=== PATIENT | female | born 1940 | race Caucasian/White ===

== ENCOUNTER 2023-10-26 20:26 | Inpatient (IN) | payer OTHER, SELFPAY ==
[2023-10-26 18:03] VITALS: BP 135/79
--- NOTE | 2023-10-26 19:12 | ED.GENMED ---
History of Present Illness
General
Chief Complaint: Rectal Bleeding
Source: patient and family
Exam Limitations: none
Time Seen by Provider: 10/26/23 18:41
Nursing documentation reviewed up to this point in time: agreed with
History of Present Illness
History of Present Illness:
Patient to ED with complaint of black stools. States she had 3 episodes last PM and then 1 again this afternoon. Had a similar event in 2018 due to use of naproxen. SHe denies current NSAId use. Denies fever/chills, n/v. Denies abdominal
pain/cramping. Eating and drinking normally. Brought to ED by daughter for eval.
Past History
Past History
ED Past Medical History: Other (Arthritis, Cellulitis)
ED Past Surgical History: Orthopedic (Left hip replacement)
Social History
Tobacco: Non-smoker
Alcohol: None
Personal:
Living: with family
Review of Systems
Review of Systems
Allergies reviewed?: Yes
All Other Systems: ROS reviewed and negative except as documented in HPI and ROS
Constitutional: Reports no symptoms
EENT: Reports no symptoms
Respiratory: Reports no symptoms
Cardiac: Reports no symptoms
ABD/GI: Reports black stools
: Reports no symptoms
Musculoskeletal: Reports no symptoms
Skin: Reports no symptoms
Neurological: Reports no symptoms
Psychiatric: Reports no symptoms
Phy Exam
General Physical Exam
General Presentation: well appearing and no apparent distress
General age: appears stated age
General Skin: warm and dry
General Habitus: normal
General Mental: alert
Cardiovascular Exam
Cardiovascular Exam: regular rate/rhythm and no edema
Pulmonary Exam
Pulmonary Exam: no respiratory distress and chest non tender
Gastrointestinal Exam
Gastrointestinal Exam: normal bowel sounds, non tender, soft, no organomegaly, no pulsatile mass, non distended and no cva tenderness
Rectal Exam: normal external exam, normal sphincter tone and soft stool
Stool: maroon
Guaiac Status: grossly bloody - positive
Musculoskeletal Exam
Musculoskeletal Exam: full ROM and neuro vasc intact
Skin Exam
Skin Exam: normal color, warm/dry and no rash
Psychiatric Exam
Psychiatric Exam: normal mood/affect
Course
Orders/Labs/Results
Orders:
Orders
10/26/23 19:10
0.9% Sodium Chloride 1000 ml [Nss] 1,000 ml IV BOLUS
10/26/23 19:11
Pantoprazole [Protonix IV] 80 mg IV NOW STA
10/26/23 19:16
Type+Screen Urgent
Complete Blood Count/With Diff Urgent
Comprehensive Metabolic Panel Urgent
Lipase Urgent
10/26/23 20:15
Admit/Transfer Patient As Directed
Co-Sign Provider:
Level of Care: Inpatient admission
Assign to:: Telemetry
Physician / Group: [email or web address]
Diagnosis: Acute bloody maroon colored blood painless GIB suspect LGI origin
Reason for Telemetry: Other
Other Reason for Telemetry: acute GIB
Date to Stop Telemetry: 10/28/23
Time to Stop Telemetry: 11:00
Reason for Hospitalization: Acute bloody maroon colored blood painless GIB suspect LGI origin
Associated with ACBLA anemia
Expected length of stay greater than two midnights?: Yes
ELOS- Estimated Length of Stay in days: 2
I certify the patient meets the requirements for IP care: Yes
10/26/23 20:16
Code Status As Directed
Resuscitation Status: Full Code
10/26/23 21:16
0.9% Sodium Chloride 1000 ml [Nss] 1,000 ml IV 60 mls/hr
10/26/23 21:16
Activity As Directed
Activity Level: With Assistance
INT (Intravenous Needle Therapy) As Directed
Comment: Place 2 IV catheters of the largest bore possible until stable
Intake/ Output As Directed
Frequency: Per unit guidelines
Orthostatic Vital Signs As Directed
Orthostatic VS Frequency: Now
Comment: then every four hours for twenty-four hours
Pneumatic Compression Sleeves As Directed
Type: Knee high
Vital Signs As Directed
Frequency: Per unit guidelines
DX Deep Vein Thrombosis Video Routine
10/27/23 06:00
Basic Metabolic Panel IN AM
10/27/23 08:00
Pantoprazole [Protonix IV] 40 mg IV BID
10/28/23 11:00
DC Protocol for Telemetry ONCE
Abnormal Lab Results
10/26/23
19:16
RBC 2.64 L 10^6/uL
(4.20-5.40)
Hgb 9.3 L g/dL
(12.0-16.0)
Hct 27.2 L %
(37.0-47.0)
MCV 103.0 H fL
(81.0-99.0)
MCH 35.2 H pg
(27.0-31.0)
MPV 12.8 H fL
(7.4-10.4)
BUN 24 H mg/dl
(7-17)
Creatinine 0.5 L mg/dL
(0.6-1.0)
Total Protein 5.8 L g/dl
(6.3-8.2)
10/26/23 19:16
10/26/23 19:16
Vital Signs
Initial and Last Documented VS:
Initial Vital Signs
Temp Pulse Resp BP Pulse Ox
98.1 F 71 18 135/79 100
10/26/23 18:03 10/26/23 18:03 10/26/23 18:03 10/26/23 18:03 10/26/23 18:03
Last Documented Vital Signs
Temp Pulse Resp BP Pulse Ox
97.9 F 74 16 184/84 100
10/26/23 21:35 10/26/23 21:35 10/26/23 21:35 10/26/23 21:35 10/26/23 21:35
*Critical Care Note
Total Time (30-74mins, 75-104mins- exclusive of procedures): Not Applicable
Update Note
Update Note:
Patient to ED wtih complaint of black stools since last PM. SImilar event in 2018 related to NSAID use. Denies any NSAId use now. Rectal exam in ED reveals maroon soft stool, heme pos. No abdominal pain, n/v. No weakness. Will admitted to
hospitalist service.
ED Attending Note
-
Portions of this chart may have been created with voice recognition software.� Occasional wrong word or��sound alike� substitutions may have occurred due to the inherent limitations of voice recognition software.
Discharge Plan
Departure
Patient Disposition: Admit
Date of Disposition: 10/26/23
Time of Disposition: 19:53
Presentation/result/management discussed w/ accepting MD/DO: Hospitalist
Patient with high blood pressure during this ER visit?: No
Condition: Good
Covid-19: Not Applicable
Discharge Problem:
GI bleeding
Interventions
Interventions:
*Risk Screen - Suicide Last Done: 10/26/23 18:03
*General Assessment Last Done: 10/26/23 18:03
*Neglect/Abuse Screening Last Done: 10/26/23 18:03
ED- Fall Risk Assessment Last Done: 10/26/23 19:18
*ED COVID-19 Vaccine History Last Done: 10/26/23 21:44
*Nursing Disposition Last Done: 10/26/23 21:30
FF-Faanxc-Lrpmfxbbwn Assessment Last Done: 10/26/23 19:19
ED- Cardiac Assessment Last Done: 10/26/23 19:19
ED- Pulmonary Assessment Last Done: 10/26/23 19:19
Discharge Date and Time
Discharge Date/Time: 10/26/23 21:31
[2023-10-26 19:15] VITALS: BP 159/72
[2023-10-26 19:18] VITALS: BMI 20.1
[2023-10-26] MEDS: PROTONIX IV 80 MG IV (19:27)
[2023-10-26] MEDS: NSS 1000 IV ×2 (19:27→22:17)
[2023-10-26 19:41] LABS: % Basophils 0.3 % (0-2); % Eosinophils 0.5 % (0-6); % Immature Granulocytes 0.3 % (0-0.5); % Lymphocytes 32.4 % (20.5-51.1); % Monocytes 7.8 % (1.7-9.3); % Neutrophils 58.7 % (42.2-75.2); Absolute Lymphocytes 1.9 10^3/uL (1.2-3.4); Absolute Monocytes 0.5 10^3/uL (0.1-0.6); Absolute Neutrophils 3.5 10^3/uL (1.4-6.5); Hematocrit 27.2 % (37.0-47.0); Hemoglobin 9.3 g/dL (12.0-16.0); Mean Corp Hgb Conc. 34.2 g/dL (33.0-37.0); Mean Corpuscular Hgb 35.2 pg (27.0-31.0); Mean Platelet Volume 12.8 fL (7.4-10.4); Nucleated Red Blood Cells % 0 %; Platelet Count 148 10^3/uL (130-400); Red Blood Cell Count 2.64 10^6/uL (4.20-5.40); Red Cell Dist. Width 13.9 % (11.5-14.5)
[2023-10-26 19:45] LABS: ALT (SGPT) 14 U/L (0-35); AST (SGOT) 21 U/L (14-36); Albumin 3.7 g/dl (3.5-5.0); Alkaline Phosphatase 72 U/L (38-126); Blood Urea Nitrogen 24 mg/dl (7-17); Calcium 9.2 mg/dl (8.4-10.2); Carbon Dioxide 24 mmol/L (22-30); Chloride 102 mmol/L (98-107); Estimated Creatinine Clearance 51 ml/min; Glucose 93 mg/dl (70-99); Lipase 142 U/L (23-300); Potassium 3.8 mmol/L (3.5-5.1); Sodium 135 mmol/L (135-145); Total Bilirubin 0.5 mg/dl (0.2-1.3); Total Protein 5.8 g/dl (6.3-8.2); eGFR > 60.00
[2023-10-26 20:00] VITALS: BP 167/73
--- NOTE | 2023-10-26 20:06 | HPS.HSE ---
Family Physician
-
Family Physician: Kaitlin Mike MD
Chief Complaint
-
3 episodes of maroon colored BM l
History of Present Illness
83F BiB daughter HX GIB, Cecal ectasia seen at ER for evaluation of black stool.
- daughter noted dark colored loose stool
- 3 episodes of dark colored puddle of loose BM last evening
- This afternoon afternoon maroon colored very loose stool , when flushed water turned red
- denied abdominal pain, N/V
- HX GIB with use of NSAIDs in 2018
- Eating and drinking normally
- Not on blood thinner
Medical History
Past Medical History
Past Medical History: Reports Other (GIB, cecal ectasia)
Past Surgical History: Reports None
Social History
Tobacco: Former Smoker
Alcohol: None
Drug: None
Living: With Family
Family History
Family History: Not pertinent
Allergies / Home Medications
Allergies reflects when Allergies were last updated in [facility].
Home Medications with original date entered in [facility]
Allergy/Medication List:
Allergies
Allergy/AdvReac Type Severity Reaction Status Date / Time
naproxen [From Naprosyn] Allergy Severe rectal Verified 10/26/23 18:05
bleeding
Milk Containing Products Allergy DAIRY-GAS Verified 10/26/23 18:05
(Dairy)
[Milk Containing Products]
Home Medications
glucosam 750 mg-chondroi 100 mg-hyalur 1.65 mg-CF borate 108 mg tablet ([employer]) 1 ea PO DAILY 10/29/17
cyanocobalamin (vitamin B-12) 1,000 mcg tablet 1,000 mcg PO DAILY ##30 11/01/17
Boswellia hugo extract-turmeric root extract 500 mg capsule 1 cap PO DAILY 10/26/23
Frankincense Oil 1 applic topical DAILY right cadence 10/26/23
acetaminophen 500 mg tablet (Tylenol Extra Strength) 1,000 mg PO DAILY@0 10/26/23
acetaminophen 500 mg tablet (Tylenol Extra Strength) 1,000 mg PO Q4H 10/26/23
cholecalciferol (vitamin D3) 25 mcg (1,000 unit) tablet (Vitamin D3) 25 mcg PO DAILY 10/26/23
diphenhydramine 25 mg-acetaminophen 500 mg tablet (Tylenol PM Extra Strength) 1 tab PO DAILY@19910/26/23
diphenhydramine 25 mg-acetaminophen 500 mg tablet (Tylenol PM Extra Strength) 2 tab PO HS 10/26/23
Review of Systems
-
Constitutional: Reports No Symptoms
EENT: Reports No Symptoms
Respiratory: Reports No Symptoms
Cardiac: Reports No Symptoms
Abdomen/GI: Reports See HPI
: Reports No Symptoms
Musculoskeletal: Reports No Symptoms
Skin: Reports No Symptoms
Neurological: Reports No Symptoms
Endocrine: Reports No Symptoms
Hematologic/Lymphatic: Reports No Symptoms
Psych: Reports No Symptoms
Physical Exam
Vital Signs
Vital Signs
Temp Pulse Resp BP Pulse Ox
98.1 F 64 13 159/72 99
10/26/23 18:03 10/26/23 19:15 10/26/23 19:12 10/26/23 19:15 10/26/23 19:19
Physical Exam
General: Well Developed, Well Nourished and No Apparent Distress
HEENT: NormoCephalic, Moist mucous membranes and Atraumatic
Respiratory: Clear
Cardiac: S1/S2 and Regular Rhythm; No Murmur or Rub
GI: Soft, Non Tender, Non Distended and Normal Bowel Sounds; No Organomegaly
Rectal: Maroon Stools (grossly bloody ) and Deferred by Provider
Musculoskeletal: No Clubbing, No Cyanosis and No Edema
Skin: No Rash
Neuro: Nonfocal/grossly intact
Laboratory Results
-
10/26/23 19:16
10/26/23 19:16
Laboratory Results
Total Bilirubin 0.5 mg/dl (0.2-1.3) 10/26/23 19:16
AST 21 U/L (14-36) 10/26/23 19:16
ALT 14 U/L (0-35) 10/26/23 19:16
Alkaline Phosphatase 72 U/L (38-126) 10/26/23 19:16
Lipase 142 U/L (23-300) 10/26/23 19:16
Data Reviewed
-
Lab Data: Labs Reviewed by me
Old Records: Reviewed
Impression/Plan
-
Vital Signs
Temp Pulse Resp BP Pulse Ox
98.1 F 64 13 159/72 99
10/26/23 18:03 10/26/23 19:15 10/26/23 19:12 10/26/23 19:15 10/26/23 19:19
Laboratory Tests
04/17/22 10/26/23
14:32 19:16
Hgb 11.5 L 9.3 L
MCV 103.0 H
Plt Count 148
BUN 24 H
Creatinine 0.5 L
eGFR > 60.00
05/16/22 EGD
- Normal esophagus.
- Erythematous mucosa in the antrum. Biopsied.
- 4 cm hiatal hernia.
- Normal examined duodenum. Biopsied.
Last hospitalist admission:
DATE OF ADMISSION: 10/29/2017 - DATE OF DISCHARGE: 11/01/2017
DISCHARGE DIAGNOSIS:
1. GI bleed.
2. Cecal ectasia.
3. H. Pylori positive.
ASSESSMENT & PLAN
Acute bloody maroon colored red blood painless GIB suspect LGI origin
DDX: vascular ectasia, Diverticular origin
Associated with ACBLA anemia - Hgb 9.3
Hemodynamically stable
- T & S
- Blood consented, scanned at ER
- NPO and IVF
- IV PPI BID
- GI consult
Chr condition
GERD
Heart murmur
Arthritis
Remote HX smoking
DVT Px: SCD
Code: Full
IP TLM
[2023-10-26 21:00] VITALS: BP 178/67
[2023-10-26 21:23] VITALS: BMI 20.2
[2023-10-26 21:35] VITALS: BP 184/84
[2023-10-26 23:00] VITALS: BP 188/80
[2023-10-26] MEDS: TYLENOL 1000 MG PO (23:00)
[2023-10-26] MEDS: BENADRYL 25 MG PO (23:00)
--- NOTE | 2023-10-26 23:51 | PTCARENOTE ---
Pt. arrived to 3W via stretcher and ambulated to bed with a rolling walker. Pt. was admitted and oriented to unit. Pt assessed by RN, manual blood pressure found to be 182/88. RUFUS Ahn notified, and no new orders placed at this time. Pt.
resting in bed comfortably and no further requests at this time.
[2023-10-27] VITALS (10 sets, daily range): BP systolic 132–205; BP diastolic 58–124; PULSE 75–119
[2023-10-27 01:35] LABS: Hematocrit 22.2 % (37.0-47.0); Hemoglobin 7.8 g/dL (12.0-16.0)
[2023-10-27] MEDS: APRESOLINE 5 MG IV (03:50)
[2023-10-27 05:44] LABS: Hematocrit 23.5 % (37.0-47.0); Hemoglobin 8.3 g/dL (12.0-16.0)
[2023-10-27 06:12] LABS: Blood Urea Nitrogen 17 mg/dl (7-17); Calcium 9.6 mg/dl (8.4-10.2); Carbon Dioxide 21 mmol/L (22-30); Chloride 105 mmol/L (98-107); Estimated Creatinine Clearance 51 ml/min; Glucose 99 mg/dl (70-99); Potassium 3.6 mmol/L (3.5-5.1); Sodium 135 mmol/L (135-145); eGFR > 60.00
--- NOTE | 2023-10-27 08:01 | W.PN.HOSP.TC ---
Addendum entered and electronically signed by Freddy Reyes MD 10/27/23 08:29:
Continue NPO pending GI input
Original Note:
Today's Communication/Plan
-
check Fe studies, consider Ferrlecit
Assessment / Plan
Assessment / Plan
Acute bloody maroon colored red blood painless GIB suspect LGI origin
DDX: vascular ectasia, Diverticular origin
Associated with ACBLA anemia - Hgb 9.3-->7.8-->8.3
Hemodynamically stable
- T & S
- Blood consented, scanned at ER
- NPO and IVF,
will order Fe studies
- IV PPI BID
follow Hgb, will hold on transfusion at this time
- GI consult
Chr condition
GERD
Aortic Sclerosis/MR
Arthritis
Remote HX smoking
Systolic HTN, mild
Will add low dose Norvasc
Confirmed with dgt, Nancy, pt not on PPI for ~1yr and dgt has been updated
DVT Px: SCD
Code: Full
IP TLM
Anticipated Discharge: 24 - 48 hours
Subjective/Interval History
-
Date of Service: October 27, 2023
Awake, alert, passed maroon stools earlier today
Objective Data
-
Labs:
Laboratory Results
10/26/23 10/27/23 10/27/23
21:16 01:28 05:18
Hgb Cancelled 7.8 L 8.3 L
Hct Cancelled 22.2 L 23.5 L
Sodium 135
Potassium 3.6
Chloride 105
Carbon Dioxide 21 L
BUN 17
Creatinine 0.5 L
Glucose 99
Calcium 9.6
10/27/23 10/27/23
11:00 17:00
Hgb Pending Pending
Hct Pending Pending
Sodium
Potassium
Chloride
Carbon Dioxide
BUN
Creatinine
Glucose
Calcium
Vital Signs:
Vital Signs
Temp Pulse Resp BP Pulse Ox
97.9 F 96 16 149/86 98
10/27/23 03:00 10/27/23 06:05 10/27/23 06:05 10/27/23 06:05 10/27/23 06:05
I&O
10/26/23 10/27/23 10/28/23
06:59 06:59 06:59
Intake Total 0 / 0
Balance 0 / 0
Review of Systems
-
History Source: Patient and Coordinated Provider
Constitutional: Denies Fever
EENT: Reports No Symptoms Reported
Respiratory: Reports No Symptoms; Denies Trouble Breathing
Cardiac: Reports No Symptoms; Denies Chest Pain
Abdomen/GI: Reports Black Stools (maroon stools earlier today); Denies Abdominal Pain
Musculoskeletal: Reports No Symptoms
Physical Exam
-
General: Well Developed, Well Nourished and No Apparent Distress
HEENT: Normocephalic, Atraumatic and Moist Mucous Membranes
Respiratory: Clear to Auscultation; Negative Wheezes, Rales or Rhonchi
Cardiac: Regular Rhythm, S1/S2 and Murmur (3/6 MR m, 2/6 m)
GI: Soft, Nontender and Nondistended
Musculoskeletal: No Clubbing, No Cyanosis and No Edema
Neuro: Awake, Alert and Oriented
[2023-10-27] MEDS: NSS (PRESERVATIVE FREE) 10 ML IV ×2 (08:20→19:49)
[2023-10-27] MEDS: PROTONIX IV 40 MG IV ×2 (08:21→19:49)
[2023-10-27 08:42] LABS: Iron 53 ug/dl (37-170)
[2023-10-27 08:51] LABS: Percent Saturation 20 % (20-50); Total Iron Binding Capacity 262 ug/dl (265-497)
[2023-10-27] MEDS: NORVASC 2.5 MG PO (09:38)
[2023-10-27] MEDS: TYLENOL 1000 MG PO (09:38)
[2023-10-27 10:11] LABS: Hematocrit 26.1 % (37.0-47.0); Hemoglobin 9.1 g/dL (12.0-16.0)
[2023-10-27 10:17] LABS: Folate 6.3 ng/ml (2.76-20); Vitamin B12 919 pg/ml (239-931)
--- NOTE | 2023-10-27 11:38 | CON.GI ---
Consultation
-
Date/Time Consultation Requested: 10/27/2023, 10:03 AM
Date/Time Consultation Performed: 10/27/2023, 11:40 AM
Requesting Provider: Dr. Freddy Reyes
Performing Provider: Dr. Mac Anne
Reason for Consultation: Black, maroon colored stool
Medical History
Chief Complaint / HPI
Chief Complaint: Black stools
History of Present Illness:
Ms Liu is a 83 y.o female with past medical history of prior GI bleed (felt 2/2 prior NSAIDs versus cecal AVM in 2018) who presented to the ED with melena and acute blood loss anemia with Hgb 9.3
History obtained from both daughter (Nancy) and patient at bedside. Patient reports she was in her USOH until Friday when she developed a large, black tarry bowel movement. She had multiple episodes in the afternoon where her daughter eventually
came over and noticed thick, black tarry stools. When she flushed it looked dark reddish in the toliet bowel. Had [id number] more episodes at home and subsequently came to the ED for further evaluation. Denies any abdominal pain, nausea/vomiting,
changes in bowel habits, reflux/heartburn or constipation/diarrhea. Denies any NSAIDs as she reports a prior history of GI bleeding in 2018 which was attributed to her Naproxen. Otherwise, no other NSAIDs since that time or other ASA or other
antiplatelets/anticoagulants. No significant EtOH use. She reports eating and drinking normally at home, however does also note an approximately 50 lb unintentional weight loss as well over the past 1-[address] Abd/pelvis 04/2022 was
reportedly unremarkable (ordered by her PCP).
In regards to her GI history, she underwent bi-directional endoscopy on 10/2017 where an EGD revealed a widely patent Schatzki ring, few scattered gastric erosions and gastritis (biopsies revealed H pylori organisms with moderate active gastritis),
and normal duodenum (negative for Celiac). 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 She was
advised to have a repeat colonoscopy in one year given her polyp and suboptimal bowel prep. However, never underwent a repeat colonoscopy as an outpatient. Both patient and patient's daughter deny ever being told or treated for H pylori in the past.
Additionally, underwent a repeat EGD (for BOB, heartburn and weight loss) 05/2022 which revealed a normal esophagus, 4 cm HH, severe erythema in the gastric antrum (negative for H pylori) and normal duodenum (nml SB mucosa)
In the ED, patient was afebrile and HD-stable. Labs notable for BUN 24 and Director Title 0.5. LFTs wnl. CBC with Hgb 9.3 (prev 11.5 on 04/2022), WBC 6.0 and plts 148. She was started on IV PPI and admitted to medicine for further management.
Past Medical History
Past Medical History: Other (Arthritis, hx of GIB (NSAIDs versus cecal AVM))
Past Surgical History: None
Social History
Tobacco: Former Smoker
Alcohol: None
Drug: None
Family History
Family History: Reviewed & Not Pertinent
Allergies / Home Medications
Allergy/AdvReac Type Severity Reaction Status Date / Time
naproxen [From Naprosyn] Allergy Severe rectal Verified 10/26/23 18:05
bleeding
Milk Containing Products Allergy DAIRY-GAS Verified 10/26/23 18:05
(Dairy)
[Milk Containing Products]
�Medication �Instructions �Recorded
glucosam 750 mg-chondroi 100 1 ea PO DAILY osteoarthritis 10/29/17
mg-hyalur 1.65 mg-CF borate 108 mg
tablet ([employer])
cyanocobalamin (vitamin B-12) 1,000 mcg PO DAILY ##30 11/01/17
1,000 mcg tablet
Boswellia hugo extract-turmeric 1 cap PO DAILY Supplement 10/26/23
root extract 500 mg capsule
Frankincense Oil 1 applic topical DAILY right cadence 10/26/23
acetaminophen 500 mg tablet 1,000 mg PO Q4H osteoarthritis 10/26/23
(Tylenol Extra Strength)
acetaminophen 500 mg tablet 500 mg PO DAILY@0200 osteoarthritis 10/26/23
(Tylenol Extra Strength)
cholecalciferol (vitamin D3) 25 25 mcg PO DAILY Supplement 10/26/23
mcg (1,000 unit) tablet (Vitamin
D3)
diphenhydramine 25 1 tab PO DAILY@0200 sleep/pain 10/26/23
mg-acetaminophen 500 mg tablet
(Tylenol PM Extra Strength)
diphenhydramine 25 2 tab PO HS sleep/pain 10/26/23
mg-acetaminophen 500 mg tablet
(Tylenol PM Extra Strength)
Review of Systems
-
All other systems: A 12 pt ROS was Negative except as stated above in HPI
Vital Signs
Temp Pulse Resp BP Pulse Ox
98.0 F 92 18 181/86 99
10/27/23 11:35 10/27/23 11:35 10/27/23 11:35 10/27/23 09:38 10/27/23 11:35
Physical Exam
Exam
General: Well Developed, Well Nourished, No Apparent Distress and Comfortable
HEENT: Anicteric and Moist Mucous Membranes
Respiratory: Clear and Non Labored Respirations
Cardiac: S1/S2 and Regular Rhythm
GI: Soft, Non Tender and Non Distended
Skin: Warm
Neuro: AO x 3 and Nonfocal/Grossly Intact
Psych: Calm
Results
WBC 6.0 10^3/uL (4.8-10.8) 10/26/23 19:16
Hgb 9.1 g/dL (12.0-16.0) L 10/27/23 09:48
Hct 26.1 % (37.0-47.0) L 10/27/23 09:48
MCV 103.0 fL (81.0-99.0) H 10/26/23 19:16
Plt Count 148 10^3/uL (130-400) 10/26/23 19:16
Absolute Neuts (auto) 3.5 10^3/uL (1.4-6.5) 10/26/23 19:16
Sodium 135 mmol/L (135-145) 10/27/23 05:18
Potassium 3.6 mmol/L (3.5-5.1) 10/27/23 05:18
Chloride 105 mmol/L (98-107) 10/27/23 05:18
Carbon Dioxide 21 mmol/L (22-30) L 10/27/23 05:18
BUN 17 mg/dl (7-17) 10/27/23 05:18
Creatinine 0.5 mg/dL (0.6-1.0) L 10/27/23 05:18
Calcium 9.6 mg/dl (8.4-10.2) 10/27/23 05:18
Total Bilirubin 0.5 mg/dl (0.2-1.3) 10/26/23 19:16
AST 21 U/L (14-36) 10/26/23 19:16
ALT 14 U/L (0-35) 10/26/23 19:16
Alkaline Phosphatase 72 U/L (38-126) 10/26/23 19:16
Lipase 142 U/L (23-300) 10/26/23 19:16
Diagnostic Image Results:
Prior CT Abd/pelvis 04/19/2022- Impression:
1. No acute findings within the chest, abdomen, or pelvis. No CT findings to explain patient's weight loss.
2. Cholelithiasis.
3. Sigmoid diverticulosis.
4. Limited evaluation of the pelvic viscera secondary to beam hardening artifact. No gross abnormality is appreciated.
5. Severe degenerative disc disease at L5-S1. Significant thoracic kyphosis. Severe degenerative osteoarthritis involving the right hip.
6. Additional findings above.
Prior GI Procedures:
EGD 10/30/2017- Impression:
- Normal duodenal bulb and second portion of the duodenum. Biopsied.
- Gastric erosions without bleeding.
- Erythematous mucosa in the antrum. Biopsied.
- Normal cardia, gastric fundus and gastric body.
- Small hiatal hernia.
- Z-line regular, 35 cm from the incisors.
- Widely patent Schatzki ring.
Colonoscopy 10/31/2017- Impression:
- Preparation of the colon was fair.
- A single bleeding colonic angioectasia. Treated with bipolar cautery. Clip (MR conditional) was placed.
- One 10 mm polyp at 40 cm proximal to the anus, removed with a hot snare. Resected and retrieved. Clip (MR conditional) was placed.
- Moderate diverticulosis in the sigmoid colon. There was evidence of diverticular spasm.
- Tortuous colon.
- Redundant colon.
- Stool in the sigmoid colon, in the descending colon and in the transverse colon.
- Non-bleeding external internal hemorrhoids.
Rec'd: Repeat Colonoscopy in 1 Year
EGD 05/16/2022- Impression:
- Normal esophagus.
- Erythematous mucosa in the antrum. Biopsied.
- 4 cm hiatal hernia.
- Normal examined duodenum. Biopsied.
Assessment / Plan
-
Ms Liu is a 83 y.o female with past medical history of prior GI bleed (felt 2/2 prior NSAIDs versus cecal AVM in 2018) who presented to the ED with melena and acute blood loss anemia with Hgb 9.3.
#Melena
#Acute Blood Loss Anemia
#Hx of Gastric Erosions (NSAID induced vs H pylori)
#Hx of H pylori Gastritis (never treated ??)
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
#Hx of Chronic BOB
#Unintentional Weight Loss (50 lbs)
Impression: Patient presenting with multiple episodes of melena found to have acute on chronic anemia (Hgb 9s -> 7s ; prev 11s) concerning for GI bleed. Previous history of GI bleeding in the past back on 10/2017 where it was possibly attributed to
NSAID-induced ulcers/erosions versus actively bleeding cecal AVM (s/p bipolar cautery at that time). Of note, previous biopsies also revealed H pylori organisms on path staining however both patient and her daughter deny ever being told about this
or receiving prior H pylori eradication therapy. No other NSAIDs or other blood thinners currently. Prior EGD 05/2022 grossly normal only noting gastric erythema with biopsies revealing chronic gastritis. Etiology concerning for either UGIB in
setting of PUD 2/2 H pylori versus gastroduodenal erosions (given her prior hx) versus gastroduodenal AVMs. Doubt brisk UGIB as without any further bloody stools or melena since admission. Slow LGIB also on differential particularly given her known
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 At risk for SB AVMs as well and possibly distal SB AVM. Much less likely diverticular as without hematochezia. Malignancy also on differential given her profound weight loss
and suboptimal prep at time of her last colonoscopy and should be ruled out. Thus, would benefit from bi-directional endoscopic evaluation for her melena, acute blood loss anemia and unintentional weight loss.
Recommendations:
- Okay for CLD, keep NPO at MN
- Continue empiric IV PPI 40 mg BiD
- F/u anemia w/u, if iron deficient would start IV iron
- Start Golyltely bowel prep this afternoon
- Plan for EGD and Colonoscopy tomorrow, 10/28/2023
- Will need to clarify with outpatient records if patient was ever treated for H pylori. Would defer starting eradication therapy at this time
- Strict avoidance of all NSAIDs
- If large volume hematochezia, significant drop in Hgb or HD-instability would obtain stat CTA in attempts of localization
- Rest of care per primary team
Discussed with patient's daughter, Nancy, at bedside this afternoon.
Inpatient GI team will continue to follow.
Data Reviewed
-
Radiology: Report Reviewed by me
CT Scan: Report Reviewed by me
Old Records: Requested
-
-
Thank you for consultation and allowing me to participate in the patient's care. Please call the television specialist GI physician during the after hours with any questions or concerns.
--- NOTE | 2023-10-27 12:28 | CM ---
Patient and daughter seen at bedside. Patient lives with daughter in home, master bedroom. Patient has walker at home. Patient in April. Patient daughter is arranging for home improvement contractor but arrangements are not finalized. Patient
PCP is Dr. Mike and she uses the [facility] in [place]. Patient plan is for discharge home with VN vs home with no needs. CM will continue to follow for discharge planning needs.
Plan; home with VN vs home with no needs.
[2023-10-27] MEDS: NULYTELY SOLUTION 4 LITERS PO (13:59)
[2023-10-27] MEDS: NSS 1000 IV (15:09)
[2023-10-27 16:19] LABS: Hematocrit 25.7 % (37.0-47.0); Hemoglobin 9.2 g/dL (12.0-16.0)
[2023-10-27] MEDS: ZOFRAN 4 MG IV (22:56)
[2023-10-28] VITALS (13 sets, daily range): BP systolic 16–165; BP diastolic 57–95
--- NOTE | 2023-10-28 00:10 | PTCARENOTE ---
Addendum entered by Qian Noble RN 10/28/23 01:50:
after nausea subsided, pt encouraged to drink bowel prep. Pt refused despite education. Plan of care ongoing.
Original Note:
Pt unable to tolerate bowel prep for colonoscopy, vomited 150mls of clear emesis. Pt drank 1500mls of the bowel prep. Pt having loose/watery maroon BMs. RUFUS notified, zofran (see MAR) and H+H ordered. Dr. Parker notified, no new orders. Plan of care
ongoing.
[2023-10-28 00:36] LABS: Hematocrit 23.1 % (37.0-47.0); Hemoglobin 8.4 g/dL (12.0-16.0)
[2023-10-28 05:47] LABS: % Basophils 0.3 % (0-2); % Immature Granulocytes 0.4 % (0-0.5); % Lymphocytes 28.7 % (20.5-51.1); % Monocytes 8.9 % (1.7-9.3); % Neutrophils 60.7 % (42.2-75.2); Absolute Eosinophils 0.1 10^3/uL (0-0.7); Absolute Monocytes 0.6 10^3/uL (0.1-0.6); Absolute Neutrophils 4.2 10^3/uL (1.4-6.5); Hematocrit 22.1 % (37.0-47.0); Hemoglobin 7.7 g/dL (12.0-16.0); Mean Corp Hgb Conc. 34.8 g/dL (33.0-37.0); Mean Corpuscular Hgb 35.3 pg (27.0-31.0); Mean Corpuscular Volume 101.4 fL (81.0-99.0); Mean Platelet Volume 13.1 fL (7.4-10.4); Nucleated Red Blood Cells % 0 %; Platelet Count 130 10^3/uL (130-400); Red Blood Cell Count 2.18 10^6/uL (4.20-5.40); Red Cell Dist. Width 13.8 % (11.5-14.5); White Blood Cell Count 6.9 10^3/uL (4.8-10.8)
--- NOTE | 2023-10-28 07:13 | PTCARENOTE ---
Pt had a large amount of bloody output into diaper. Hgb 8.4 at 0019 and dropped to 7.7 at 0522. BP 146/95, HR 107, 100% RA, RR 20, temp 98.3. No c/o dizziness. 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 Stat CT abd pelvis ordered, pt taken to CT. 1u PRBCs ordered,
[facility] updated and plan of care ongoing.
[2023-10-28] MEDS: NORVASC 2.5 MG PO (08:08)
[2023-10-28] MEDS: NSS (PRESERVATIVE FREE) 10 ML IV (08:08)
[2023-10-28] MEDS: PROTONIX IV 40 MG IV (08:08)
[2023-10-28] MEDS: NSS 1000 IV (08:09)
--- NOTE | 2023-10-28 13:24 | W.PN.HOSP.TC ---
Today's Communication/Plan
-
follow Hgb
start on clear liquids
Assessment / Plan
Assessment / Plan
Acute bloody maroon colored red blood painless GIB suspect LGI origin
DDX: vascular ectasia, Diverticular origin
Associated with ACBLA anemia - Hgb 9.3-->7.8-->8.3-->7.7 -transfuse 1 unit PRBC
Hemodynamically stable
- T & S
- Blood consented, scanned at ER
- NPO, discussed with GI post colo and EGD, rec increase to clear liquids, okay to decrease Protonix to one orally daily, recheck Hgb and dc IVF,
Fe studies: 20% saturation, Ferritin 173
- IV PPI BID
follow Hgb
- GI consult appreciated
Chr condition
GERD
Aortic Sclerosis/MR
Arthritis
Remote HX smoking
Systolic HTN, mild
added low dose Norvasc, BP better: 113-157/73-92
Confirmed with dgt, Nancy, pt not on PPI for ~1yr and dgt has been updated at bedside
DVT Px: SCD
Code: Full
IP TLM
Anticipated Discharge: 24 - 48 hours
Subjective/Interval History
-
Date of Service: October 28, 2023
Awake, alert, reviewed with dgt at bedside
Objective Data
-
Labs:
Laboratory Results
10/28/23
05:22
WBC 6.9
Hgb 7.7 L
Hct 22.1 L
Plt Count 130
Vital Signs:
Vital Signs
Temp Pulse Resp BP Pulse Ox
97.2 F 77 19 157/73 100
10/28/23 13:15 10/28/23 13:15 10/28/23 13:15 10/28/23 13:15 10/28/23 13:15
I&O
10/27/23 10/28/23 10/29/23
06:59 06:59 06:59
Intake Total 2519 0 / 0
Balance 2519 0 / 0
Review of Systems
-
History Source: Patient and Coordinated Provider
Constitutional: Denies Fever
EENT: Reports No Symptoms Reported
Respiratory: Reports No Symptoms; Denies Trouble Breathing
Cardiac: Reports No Symptoms; Denies Chest Pain
Abdomen/GI: Reports Black Stools (maroon stools since admission); Denies Abdominal Pain
Musculoskeletal: Reports No Symptoms
Physical Exam
-
General: Well Developed, Well Nourished and No Apparent Distress
HEENT: Normocephalic, Atraumatic and Moist Mucous Membranes
Respiratory: Clear to Auscultation; Negative Wheezes, Rales or Rhonchi
Cardiac: Regular Rhythm, S1/S2 and Murmur (04/15 MR m, 03/18 m)
GI: Soft, Nontender and Nondistended
Musculoskeletal: No Clubbing, No Cyanosis and No Edema
Neuro: Awake, Alert and Oriented
--- NOTE | 2023-10-28 14:15 | PN.CDI ---
CDI
- -
CDI:
Physician Documentation Request
Admit Date: 10/26/23 20:26
Dear Doctor Amy,
Patient admitted with GI bleed.
10/26 Nursing skin assessment, 'Stage 1 gluteal cleft pressure injury, POA.'
Physician documentation of the type and location of wounds is required for compliant documentation. Based on the above clinical findings and your assessment, please provide the following in your progress note:
Type (etiology) of ulcer/wound:
- Pressure (decubitus) ulcer
- Other
- Unable to determine
For a pressure ulcer, please also include the stage* of the ulcer:
- Stage 1 - Skin intact, non-blanchable redness
- Stage 2 - Partial thickness loss of dermis, includes intact or open blister
- Stage 3 - Full thickness tissue not including bone, tendon or muscle
- Stage 4 - Full thickness tissue loss, including exposed bone, tendon or muscle
- Unstageable - Full thickness loss in which the base of the ulcer is covered by slough (yellow, smith, cavazos, green or brown) and/or eschar (smith, brown or black) in the wound bed.
- Unable to determine
Use of terms such as suspected, likely, concern for, or probable (associated with a specific diagnosis that is being evaluated, monitored, or treated as if it exists) are acceptable and can be coded in the inpatient setting, when documented at the
time of discharge.
Thank you,
Viviana RUSS,RN,CCDS
CDI Specialist
Available via tiger text
Please use your independent medical judgment in providing your response.
*Source: National Pressure Ulcer Advisory Panel (NPUAP)
[2023-10-28 16:46] LABS: Hematocrit 32.1 % (37.0-47.0); Hemoglobin 11.6 g/dL (12.0-16.0); Mean Corp Hgb Conc. 36.1 g/dL (33.0-37.0); Mean Corpuscular Hgb 34.8 pg (27.0-31.0); Mean Corpuscular Volume 96.4 fL (81.0-99.0); Mean Platelet Volume 12.9 fL (7.4-10.4); Platelet Count 132 10^3/uL (130-400); Red Blood Cell Count 3.33 10^6/uL (4.20-5.40); Red Cell Dist. Width 16.7 % (11.5-14.5); White Blood Cell Count 15.8 10^3/uL (4.8-10.8)
[2023-10-28] MEDS: NSS (PRESERVATIVE FREE) IV (20:24)
[2023-10-29 03:51] VITALS: BP 112/70
--- NOTE | 2023-10-29 05:19 | DOWNTIME ---
There was a [employer] Sales Supervisor Downtime on 10/29/2023 from 0100 to 10/29/2023 at 0300. Downtime documentation of patient's care, including medication administrations, has been reconciled in the electronic record per guidelines. Refer to the
patient's paper chart under the miscellaneous tab to see printed paper medication records and downtime forms.
[2023-10-29 07:39] LABS: Hematocrit 22.3 % (37.0-47.0); Mean Corp Hgb Conc. 35.9 g/dL (33.0-37.0); Mean Corpuscular Hgb 34.6 pg (27.0-31.0); Mean Corpuscular Volume 96.5 fL (81.0-99.0); Mean Platelet Volume 12.7 fL (7.4-10.4); Platelet Count 113 10^3/uL (130-400); Red Blood Cell Count 2.31 10^6/uL (4.20-5.40); Red Cell Dist. Width 16.8 % (11.5-14.5); White Blood Cell Count 8.8 10^3/uL (4.8-10.8)
[2023-10-29] MEDS: NORVASC 2.5 MG PO (07:47)
[2023-10-29] MEDS: PROTONIX 40 MG PO (07:47)
[2023-10-29] MEDS: NSS (PRESERVATIVE FREE) IV ×2 (07:47→20:09)
--- NOTE | 2023-10-29 09:58 | W.PN.GI.CBS2 ---
Today's Communication / Plan
-
No further signs of bleeding and stable Hgb. Suspect resolved diverticular bleed. May ADAT along with outpatient GI follow-up after discharge. Rest of care as outlined below. Inpatient GI team will sign-off, please call back with any questions or
concerns.
Assessment / Plan
-
Ms Liu is a 83 y.o female with past medical history of prior GI bleed (felt 2/2 prior NSAIDs versus cecal AVM in 2018) who presented to the ED with melena and acute blood loss anemia with Hgb 9.3.
#Melena #Maroon Colored Stools
#Acute Blood Loss Anemia
#Hx of Gastric Erosions (NSAID induced vs H pylori)
#Hx of H pylori Gastritis (never treated ??)
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
#Hx of Chronic BOB
#Unintentional Weight Loss (50 lbs)
Impression: Patient presenting with multiple episodes of melena found to have acute on chronic anemia (Hgb 9s -> 7s ; prev 11s) concerning for GI bleed. Previous history of GI bleeding in the past back on 10/2017 where it was possibly attributed to
NSAID-induced ulcers/erosions versus actively bleeding cecal AVM (s/p bipolar cautery at that time). Of note, previous biopsies also revealed H pylori organisms on path staining however both patient and her daughter deny ever being told about this
or receiving prior H pylori eradication therapy. No other NSAIDs or other blood thinners currently. Prior EGD 05/2022 grossly normal only noting gastric erythema with biopsies revealing chronic gastritis. Etiology concerning for either UGIB in
setting of PUD 2/2 H pylori versus gastroduodenal erosions (given her prior hx) versus gastroduodenal AVMs. Doubt brisk UGIB as without any further bloody stools or melena since admission. Slow LGIB also on differential particularly given her known
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 At risk for SB AVMs as well and possibly distal SB AVM. Much less likely diverticular as without hematochezia. Malignancy also on differential given her profound weight loss
and suboptimal prep at time of her last colonoscopy and should be ruled out. Thus, would benefit from bi-directional endoscopic evaluation for her melena, acute blood loss anemia and unintentional weight loss. Of note, prior CT Abd/pelvis 04/2022 (-)
for any obvious large masses / malignancy.
S/p EGD and colonoscopy on 10/27:
- EGD with LA grade A esophagitis, medium sized HH, but otherwise wnl (biopsied for H pylori given prior hx) but otherwise normal
- Colonoscopy revealing extensive amount of old blood throughout her entire colon (except cecum/proximal AC), found to have small, oozing cecal AVM (s/p bipolar cautery and one hemoclip) and sigmoid diverticulosis, suspicious for resolved
diverticular hemorrhage
Etiology suspicious for resolved diverticular hemorrhage given colonoscopy findings with extensive amount of old blood and localized sigmoid diverticulosis. Found to have a small, oozing cecal AVM as well (s/p cauterization and one hemoclip) however
not felt to be the source of her significant acute blood loss anemia and bloody stools. No further signs of recurrent bleeding and stable H/h.
Recommendations:
- May advance diet as tolerated
- Pantoprazole 40 mg once daily given mild esophagitis on EGD
- Trend Hgb with serial CBC
- Will f/u pathology results from her EGD as an outpatient (appears she was treated for H pylori in the past)
- Given suspected, resolved diverticular bleed will defer further w/u with a VCE. However, if her Hgb drifts as an outpatient could consider pursuing a VCE to r/o any SB AVMs given visualized cecal AVM at time of colonoscopy. Daughter also in
agreement as her mother is quite frail and wants to avoid any further interventions unless absolutely needed
- Discussed with patient's daughter extensively this AM
- May still pass old blood given amount of old blood throughout her colon during colonoscopy
- If recurrent large volume hematochezia while inpatient, would repeat stat CTA. However, appears bleeding has resolved
- Avoidance of all NSAIDs
- Rest of care per primary team
Discussed with primary internal medicine team this AM. GI team will sign-off. Please call back with any questions or concerns related to this patient.
Subjective
Subjective
Date of Service: October 29, 2023
- S/p EGD and colonoscopy on 10/27: EGD with LA grade A esophagitis, medium sized HH, but otherwise wnl (biopsied for H pylori given prior hx) but otherwise normal ; colonoscopy revealing extensive amount of old blood throughout her entire colon,
found to have small, oozing cecal AVM (s/p bipolar cautery and one hemoclip) and sigmoid diverticulosis, suspicious for resolved diverticular hemorrhage
- Otherwise, no acute events overnight
- Hgb stable and suspect previous 11.6 was spurious, 7.7 -> 8.0
Resting comfortably in bed. No reported bloody stools overnight or early this AM reported by nursing. Denies any abdominal pain, nausea or vomiting. Hoping to have more solid food. Her daughter (Nancy) at bedside, updated her this AM and likely
resolved diverticular bleed.
Objective
Data Reviewed
Laboratory Data:
Laboratory Results
10/29/23 07:11
10/27/23 05:18
Laboratory Results
Total Bilirubin 0.5 mg/dl (0.2-1.3) 10/26/23 19:16
AST 21 U/L (14-36) 10/26/23 19:16
ALT 14 U/L (0-35) 10/26/23 19:16
Alkaline Phosphatase 72 U/L (38-126) 10/26/23 19:16
Lipase 142 U/L (23-300) 10/26/23 19:16
Vital Signs and I&O:
Vital Signs
Temp Pulse Resp BP Pulse Ox
97.4 F 92 20 112/70 100
10/29/23 03:51 10/29/23 03:51 10/29/23 03:51 10/29/23 03:51 10/29/23 03:51
I&O
10/28/23 10/29/23 10/30/23
06:59 06:59 06:59
Intake Total 2520 / 2520 250 / 250
Balance 2520 / 2520 250 / 250
Physical Exam
Physical Exam
HEENT: Anicteric and Moist mucous membranes
Cardiology: Normal Sinus Rhythm
Pulmonary: Clear and Other (Normal WOB on room air)
GI: Soft, Non Distended, Flat and Non Tender
Extremities: Warm
Neuro: Non Focal
[2023-10-29 11:32] VITALS: BP 84/50
[2023-10-29 12:07] VITALS: BP 112/65
[2023-10-29 15:13] VITALS: BP 109/57
--- NOTE | 2023-10-29 15:13 | W.PN.HOSP.TC ---
Addendum entered and electronically signed by Freddy Reyes MD 10/29/23 15:26:
will give 1 dose of IV Fe now
Original Note:
Today's Communication/Plan
-
follow hgb
call placed to review with GI, await return call
Assessment / Plan
Assessment / Plan
Acute bloody maroon colored red blood painless GIB suspect LGI origin
DDX: vascular ectasia, Diverticular origin
Associated with ACBLA anemia - Hgb 9.3-->7.8-->8.3-->7.7 -transfuse 1 unit PRBC-->8.0
Hemodynamically stable
- T & S
- Blood consented, scanned at ER
- diet has been advanced, discussed with GI post colo and EGD, rec increase to clear liquids, okay to decrease Protonix to one orally daily, recheck Hgb and dc IVF,
Fe studies: 20% saturation, Ferritin 173
- IV PPI BID
follow Hgb
- GI consult appreciated
EGD: - LA Grade A esophagitis with no bleeding.
- Z-line variable, 40 cm from the incisors.
- Medium-sized, 3 cm hiatal hernia.
- Normal stomach on direct and retroflexion views.
Biopsied to r/o H pylori.
- Normal examined duodenum up to the third portion.
- The exam was otherwise without abnormality or
significant findings throughout the examined upper GI
tract to account for patient's melena and maroon
colored stools
Colonoscopy: - Preparation of the colon was inadequate due to stool
and amount of old blood.
- An extensive amount of old, clotted red blood was
found and thickly adherent throughout the entire
examined colon, except the proximal right colon and
cecum with liquid brown stool.
- Suspicious for resolved left-sided diverticular
hemorrhage
- A single bleeding colonic angiodysplastic lesion was
found in the cecum. Unclear if this accurately
represented patient's degree of acute blood loss
anemia and extensive amount of blood throughout the
colon. Treated with bipolar cautery. One hemoclip (MR
conditional) was placed. 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.
- Moderate diverticulosis in the sigmoid colon. There
was evidence of past bleeding from the diverticular
opening with clotted old blood.
- Non-bleeding internal hemorrhoids.
- The examination was otherwise normal on direct and
retroflexion views without any other actively bleeding
lesions or obvious large pedunculated polyps or large
masses. The prep was inadequate for polyp detection.
- No specimens collected.
Chr condition
GERD
Aortic Sclerosis/MR
Arthritis
Remote HX smoking
Systolic HTN, mild
added low dose Norvasc, BP better: 113-157/73-92
Confirmed with dgt, Nancy, pt not on PPI for ~1yr and dgt has been updated at bedside 10/28
diet has been advanced, will follow Hgb. If Hgb remains stable consideration for dc, if evidence of further bleeding, will need to notify GI
DVT Px: SCD
Code: Full
IP TLM
Anticipated Discharge: 24 - 48 hours
Subjective/Interval History
-
Date of Service: October 29, 2023
Awake, alert, conversant
Objective Data
-
Labs:
Laboratory Results
10/29/23
07:11
WBC 8.8
Hgb 8.0 L D
Hct 22.3 L
Plt Count 113 L
Vital Signs:
Vital Signs
Temp Pulse Resp BP Pulse Ox
98.8 F 92 18 112/65 99
10/29/23 11:32 10/29/23 11:32 10/29/23 11:32 10/29/23 12:07 10/29/23 11:32
I&O
10/28/23 10/29/23 10/30/23
06:59 06:59 06:59
Intake Total 2520 / 2520 250 / 250
Balance 2520 / 2520 250 / 250
Review of Systems
-
History Source: Patient and Family (dgt, Nancy, in room)
Constitutional: Denies Fever
EENT: Reports No Symptoms Reported
Respiratory: Reports No Symptoms; Denies Trouble Breathing
Cardiac: Reports No Symptoms; Denies Chest Pain
Abdomen/GI: Reports Black Stools (maroon stools since admission); Denies Abdominal Pain
Musculoskeletal: Reports No Symptoms
Physical Exam
-
General: Well Developed, Well Nourished and No Apparent Distress
HEENT: Normocephalic, Atraumatic and Moist Mucous Membranes
Respiratory: Clear to Auscultation; Negative Wheezes, Rales or Rhonchi
Cardiac: Regular Rhythm, S1/S2 and Murmur (04/15 MR m, 03/18 m)
GI: Soft, Nontender and Nondistended
Musculoskeletal: No Clubbing, No Cyanosis and No Edema
Neuro: Awake, Alert and Oriented
[2023-10-29] MEDS: FERRLECIT 110 MG IV (15:43)
[2023-10-29] MEDS: TYLENOL 1000 MG PO (17:02)
[2023-10-29 20:17] VITALS: BP 93/59
[2023-10-29 23:24] VITALS: BP 119/67
[2023-10-30] VITALS (16 sets, daily range): BP systolic 87–145; BP diastolic 7–79; PULSE 105; O2SAT 97
--- NOTE | 2023-10-30 03:11 | PTCARENOTE ---
resumed care from previous rn. aaox2-3 forgetful at times. vss. no rectal bleeding noted. will monitor.
[2023-10-30 06:53] LABS: % Basophils 0.1 % (0-2); % Eosinophils 0.7 % (0-6); % Immature Granulocytes 0.4 % (0-0.5); % Lymphocytes 21.3 % (20.5-51.1); % Monocytes 10.9 % (1.7-9.3); % Neutrophils 66.6 % (42.2-75.2); Absolute Eosinophils 0.1 10^3/uL (0-0.7); Absolute Neutrophils 6.3 10^3/uL (1.4-6.5); Hematocrit 21.7 % (37.0-47.0); Hemoglobin 7.8 g/dL (12.0-16.0); Mean Corp Hgb Conc. 35.9 g/dL (33.0-37.0); Mean Corpuscular Hgb 34.5 pg (27.0-31.0); Mean Platelet Volume 13.6 fL (7.4-10.4); Nucleated Red Blood Cells % 0 %; Platelet Count 110 10^3/uL (130-400); Red Blood Cell Count 2.26 10^6/uL (4.20-5.40); Red Cell Dist. Width 16.6 % (11.5-14.5); White Blood Cell Count 9.5 10^3/uL (4.8-10.8)
[2023-10-30] MEDS: PROTONIX 40 MG PO (07:23)
[2023-10-30] MEDS: NORVASC 2.5 MG PO (07:23)
[2023-10-30] MEDS: NSS (PRESERVATIVE FREE) IV (07:26)
--- NOTE | 2023-10-30 07:41 | W.PN.UPDATE ---
Update Note
Progress Note Update
based on chart check - hgb is stable and stools are more brown.
yesterday's events were expected old blood.
please call if patient changes clinically
--- NOTE | 2023-10-30 08:42 | W.PN.HOSP.TC ---
Addendum entered and electronically signed by Freddy Reyes MD 10/30/23 16:24:
Pt had recurrent bleeding.
Met with dgt 2nd time today. Very limited options. Would ;like to take pt home on Friday, potentially on Hospice. Spoke to CM to make her aware. Will probably change manager to [employer], asked dgt to think about it over night. Will allow full
liquids
Original Note:
Today's Communication/Plan
-
advance diet
Physical Therapy
encourage OOB to chair
transfuse 1 unit PRBC this morning
potential dc tomorrow
Assessment / Plan
Assessment / Plan
Acute bloody maroon colored red blood painless GIB suspect LGI origin
DDX: vascular ectasia, Diverticular origin
Associated with ACBLA anemia - Hgb 9.3-->7.8-->8.3-->7.7 -transfuse 1 unit PRBC-->8.0-->7.8, will transfuse another unit
(Hgb 11.6 post transfusion on 10/27, probably in error)
Hemodynamically stable
- T & S
- Blood consented, scanned at ER
- diet has been advanced, discussed with GI post colo and EGD, okay to advance diet to Low Residue
Fe studies: 20% saturation, Ferritin 173
given 1 dose of ferrlecit, will give 2nd dose
- IV PPI BID
follow Hgb
- GI consult appreciated
EGD: - LA Grade A esophagitis with no bleeding.
- Z-line variable, 40 cm from the incisors.
- Medium-sized, 3 cm hiatal hernia.
- Normal stomach on direct and retroflexion views.
Biopsied to r/o H pylori.
- Normal examined duodenum up to the third portion.
- The exam was otherwise without abnormality or
significant findings throughout the examined upper GI
tract to account for patient's melena and maroon
colored stools
Colonoscopy: - Preparation of the colon was inadequate due to stool
and amount of old blood.
- An extensive amount of old, clotted red blood was
found and thickly adherent throughout the entire
examined colon, except the proximal right colon and
cecum with liquid brown stool.
- Suspicious for resolved left-sided diverticular
hemorrhage
- A single bleeding colonic angiodysplastic lesion was
found in the cecum. Unclear if this accurately
represented patient's degree of acute blood loss
anemia and extensive amount of blood throughout the
colon. Treated with bipolar cautery. One hemoclip (MR
conditional) was placed. 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.
- Moderate diverticulosis in the sigmoid colon. There
was evidence of past bleeding from the diverticular
opening with clotted old blood.
- Non-bleeding internal hemorrhoids.
- The examination was otherwise normal on direct and
retroflexion views without any other actively bleeding
lesions or obvious large pedunculated polyps or large
masses. The prep was inadequate for polyp detection.
- No specimens collected.
Chr condition
GERD
'Stage 1 gluteal cleft pressure injury, POA.'
Aortic Sclerosis/MR
Arthritis
Remote HX smoking
Systolic HTN, mild
added low dose Norvasc, BP better: 113-157/73-92
Confirmed with dgt, Nancy, pt not on PPI for ~1yr and dgt has been updated at bedside 10/29
Long discussion with dgt at bedside with GOC and plans moving forward. Pt really wants nothing further done and would like to be discharged. Nancy would like to follow patient's reviously and currently stated requests. Will transfuse 1 more
unit now, if has appropriate response with improvement of Hgb tomorrow, will plan to dc with VN. If Hgb does not respond, then assumption would be continued bleeding and then because of limited options will strongly consider dc to home on Hospice.
time 60 minutes
DVT Px: SCD
Code: Full
IP TLM
Anticipated Discharge: 24 - 48 hours
Subjective/Interval History
-
Date of Service: October 30, 2023
Pt really wants to go home. Met with dgt in room and discussed plans/options
Objective Data
-
Labs:
Laboratory Results
10/30/23
05:48
WBC 9.5
Hgb 7.8 L
Hct 21.7 L
Plt Count 110 L
Vital Signs:
Vital Signs
Temp Pulse Resp BP Pulse Ox
98.8 F 90 16 119/72 96
10/30/23 07:37 10/30/23 07:37 10/30/23 07:37 10/30/23 07:37 10/30/23 07:37
I&O
10/29/23 10/30/23 10/31/23
06:59 06:59 06:59
Intake Total 250 / 250 840 / 840
Balance 250 / 250 840 / 840
Review of Systems
-
History Source: Patient and Family (dgt, Nancy, in room)
Constitutional: Denies Fever
EENT: Reports No Symptoms Reported
Respiratory: Reports No Symptoms; Denies Trouble Breathing
Cardiac: Reports No Symptoms; Denies Chest Pain
Abdomen/GI: Reports Black Stools (maroon stools have decreased and stool is mostly brown); Denies Abdominal Pain
Musculoskeletal: Reports No Symptoms
Physical Exam
-
General: Well Developed, Well Nourished and No Apparent Distress
HEENT: Normocephalic, Atraumatic and Moist Mucous Membranes
Respiratory: Clear to Auscultation; Negative Wheezes, Rales or Rhonchi
Cardiac: Regular Rhythm, S1/S2 and Murmur (3/6 MR m, 2/6 m)
GI: Soft, Nontender and Nondistended
Musculoskeletal: No Clubbing, No Cyanosis and No Edema
Neuro: Awake, Alert and Oriented
--- NOTE | 2023-10-30 12:10 | W.PN.GI.CBS2 ---
Today's Communication / Plan
-
-- IR for possible embolization, transfusion of 1 unit, n.p.o., update CODE STATUS
Assessment / Plan
-
Ms Liu is a 83 y.o female with past medical history of prior GI bleed (felt 2/2 prior NSAIDs versus cecal AVM in 2018) who presented to the ED with melena and acute blood loss anemia with Hgb 9.3.
#Melena #Maroon Colored Stools
#Acute Blood Loss Anemia
#Hx of Gastric Erosions (NSAID induced vs H pylori)
#Hx of H pylori Gastritis (never treated ??)
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
#Hx of Chronic BOB
#Unintentional Weight Loss (50 lbs)
Impression: Patient presenting with multiple episodes of melena found to have acute on chronic anemia (Hgb 9s -> 7s ; prev 11s) concerning for GI bleed. Previous history of GI bleeding in the past back on 10/2017 where it was possibly attributed to
NSAID-induced ulcers/erosions versus actively bleeding cecal AVM (s/p bipolar cautery at that time). Of note, previous biopsies also revealed H pylori organisms on path staining however both patient and her daughter deny ever being told about this
or receiving prior H pylori eradication therapy. No other NSAIDs or other blood thinners currently. Prior EGD 05/2022 grossly normal only noting gastric erythema with biopsies revealing chronic gastritis. Etiology concerning for either UGIB in
setting of PUD 2/2 H pylori versus gastroduodenal erosions (given her prior hx) versus gastroduodenal AVMs. Doubt brisk UGIB as without any further bloody stools or melena since admission. Slow LGIB also on differential particularly given her known
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 At risk for SB AVMs as well and possibly distal SB AVM. Much less likely diverticular as without hematochezia. Malignancy also on differential given her profound weight loss
and suboptimal prep at time of her last colonoscopy and should be ruled out. Thus, would benefit from bi-directional endoscopic evaluation for her melena, acute blood loss anemia and unintentional weight loss. Of note, prior CT Abd/pelvis 04/2022 (-)
for any obvious large masses / malignancy.
S/p EGD and colonoscopy on 10/27:
- EGD with LA grade A esophagitis, medium sized HH, but otherwise wnl (biopsied for H pylori given prior hx) but otherwise normal
- Colonoscopy revealing extensive amount of old blood throughout her entire colon (except cecum/proximal AC), found to have small, oozing cecal AVM (s/p bipolar cautery and one hemoclip) and sigmoid diverticulosis, suspicious for resolved
diverticular hemorrhage
Etiology suspicious for resolved diverticular hemorrhage given colonoscopy findings with extensive amount of old blood and localized sigmoid diverticulosis. Found to have a small, oozing cecal AVM as well (s/p cauterization and one hemoclip) however
not felt to be the source of her significant acute blood loss anemia and bloody stools. No further signs of recurrent bleeding and stable H/h.
Recommendations:
10/30/2023 -patient has had 3 maroon stools this morning and is hypotensive
-- 1 unit has been ordered
-- Discussed with the patient and her daughter Tanner who is at bedside now
-- Since she appears to actively be bleeding, options will be CT angio bleeding scan however with her hip replacement there is too much artifact which makes the scan not helpful versus send her to interventional radiology for hopeful embolization of
the suspected diverticular bleed versus hospice
-- The patient and daughter both want to be DNR. I did make this discussion apparent to Dr. Reyes who apparently already had this discussion
-- I spoke to interventional radiology who is going to take her down for arteriogram
-- N.p.o., transfuse
Subjective
Subjective
Date of Service: October 30, 2023
Patient has had 3 maroon stools and was hypotensive. Currently weak and pale
Objective
Data Reviewed
Laboratory Data:
Laboratory Results
Total Bilirubin 0.5 mg/dl (0.2-1.3) 10/26/23 19:16
AST 21 U/L (14-36) 10/26/23 19:16
ALT 14 U/L (0-35) 10/26/23 19:16
Alkaline Phosphatase 72 U/L (38-126) 10/26/23 19:16
Lipase 142 U/L (23-300) 10/26/23 19:16
Vital Signs and I&O:
Vital Signs
Temp Pulse Resp BP Pulse Ox
97.8 F 87 16 97/58 100
10/30/23 11:22 10/30/23 11:22 10/30/23 11:22 10/30/23 12:01 10/30/23 11:22
I&O
10/29/23 10/30/23 10/31/23
06:59 06:59 06:59
Intake Total 250 / 250 840 / 840
Balance 250 / 250 840 / 840
Physical Exam
Physical Exam
HEENT: Anicteric
GI: Soft
Neuro: Non Focal
[2023-10-30 12:16] LABS: Hemoglobin 8.9 g/dL (12.0-16.0)
[2023-10-30 12:42] LABS: Blood Urea Nitrogen 15 mg/dl (7-17); Calcium 9.1 mg/dl (8.4-10.2); Carbon Dioxide 20 mmol/L (22-30); Chloride 91 mmol/L (98-107); Estimated Creatinine Clearance 51 ml/min; Glucose 157 mg/dl (70-99); Potassium 3.5 mmol/L (3.5-5.1); Sodium 126 mmol/L (135-145); eGFR > 60.00
--- NOTE | 2023-10-30 14:48 | W.PN.UPDATE ---
Update Note
Progress Note Update
- SMA/HONG arteriograms performed. Image quality suboptimal however no gross foci of bleeding identified.
- Vitals stable throughout
- Mynx closure device used at R [facility]. However, patient continually elevated right leg and knee during the case. R knee immobilizer placed. Pt at risk for right groin hematoma. Rec close monitoring, possibly upgrading level of care if need be.
--- NOTE | 2023-10-30 16:11 | CM ---
spoke with dr jeter.patient had another bleed today.arteriogram done with no findings.hgb 7.8-gave a unit prbc.per discussion with patient and daughter,patient wants to go home.dr will place on comfort care . wants hospice consult but not until
tomorrow.Plan is dc home on friday.
[2023-10-30] MEDS: FERRLECIT 110 MG IV (16:37)
[2023-10-30] MEDS: TYLENOL 1000 MG PO (23:31)
[2023-10-31] VITALS (7 sets, daily range): BP systolic 85–141; BP diastolic 47–73
[2023-10-31 06:04] LABS: % Basophils 0.1 % (0-2); % Eosinophils 0.1 % (0-6); % Immature Granulocytes 0.8 % (0-0.5); % Lymphocytes 5.7 % (20.5-51.1); % Monocytes 13.4 % (1.7-9.3); % Neutrophils 79.9 % (42.2-75.2); Absolute Immature Granulocytes 0.1 10^3/uL (0-0.05); Absolute Lymphocytes 0.9 10^3/uL (1.2-3.4); Absolute Monocytes 2.1 10^3/uL (0.1-0.6); Absolute Neutrophils 12.7 10^3/uL (1.4-6.5); Hematocrit 25.2 % (37.0-47.0); Hemoglobin 9.3 g/dL (12.0-16.0); Mean Corp Hgb Conc. 36.9 g/dL (33.0-37.0); Mean Corpuscular Volume 94.7 fL (81.0-99.0); Nucleated Red Blood Cells % 0 %; Red Blood Cell Count 2.66 10^6/uL (4.20-5.40); Red Cell Dist. Width 16.9 % (11.5-14.5); White Blood Cell Count 15.9 10^3/uL (4.8-10.8)
[2023-10-31 08:22] LABS: Mean Platelet Volume 14.1 fL (7.4-10.4); Platelet Count 90 10^3/uL (130-400)
--- NOTE | 2023-10-31 08:42 | W.PN.GI.CBS2 ---
Today's Communication / Plan
-
Concern for rebleeding with (-) IR arteriogram on 10/29, Hgb stable after 1 uPRBC. Agree with ongoing GOC discussions, now considering pursuing hospice. See rest of care as outlined below.
Assessment / Plan
-
Ms Liu is a 83 y.o female with past medical history of prior GI bleed (felt 2/2 prior NSAIDs versus cecal AVM in 2018) who presented to the ED with melena and acute blood loss anemia with Hgb 9.3.
#Melena #Maroon Colored Stools
#Acute Blood Loss Anemia
#Hx of Gastric Erosions (NSAID induced vs H pylori)
#Hx of H pylori Gastritis (never treated ??)
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
#Hx of Chronic BOB
#Unintentional Weight Loss (50 lbs)
Impression: Patient presenting with multiple episodes of melena found to have acute on chronic anemia (Hgb 9s -> 7s ; prev 11s) concerning for GI bleed. Previous history of GI bleeding in the past back on 10/2017 where it was possibly attributed to
NSAID-induced ulcers/erosions versus actively bleeding cecal AVM (s/p bipolar cautery at that time). Of note, previous biopsies also revealed H pylori organisms on path staining however both patient and her daughter deny ever being told about this
or receiving prior H pylori eradication therapy. No other NSAIDs or other blood thinners currently. Prior EGD 05/2022 grossly normal only noting gastric erythema with biopsies revealing chronic gastritis. Etiology concerning for either UGIB in
setting of PUD 2/2 H pylori versus gastroduodenal erosions (given her prior hx) versus gastroduodenal AVMs. Doubt brisk UGIB as without any further bloody stools or melena since admission. Slow LGIB also on differential particularly given her known
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 At risk for SB AVMs as well and possibly distal SB AVM. Much less likely diverticular as without hematochezia. Malignancy also on differential given her profound weight loss
and suboptimal prep at time of her last colonoscopy and should be ruled out. Thus, would benefit from bi-directional endoscopic evaluation for her melena, acute blood loss anemia and unintentional weight loss. Of note, prior CT Abd/pelvis 04/2022 (-)
for any obvious large masses / malignancy.
S/p EGD and colonoscopy on 10/27:
- EGD with LA grade A esophagitis, medium sized HH, but otherwise wnl (biopsied for H pylori given prior hx) but otherwise normal
- Colonoscopy revealing extensive amount of old blood throughout her entire colon (except cecum/proximal AC), found to have small, oozing cecal AVM (s/p bipolar cautery and one hemoclip) and sigmoid diverticulosis, suspicious for resolved
diverticular hemorrhage
Etiology suspicious for resolved diverticular hemorrhage given colonoscopy findings with extensive amount of old blood and localized sigmoid diverticulosis. Found to have a small, oozing cecal AVM as well (s/p cauterization and one hemoclip) however
not felt to be the source of her significant acute blood loss anemia and bloody stools. No further signs of recurrent bleeding and stable H/h.
S/p IR SMA/HONG arteriograms on 10/29 given concern for recurrent bleeding and hypotension without any active extravasation to suggest bleeding (limited due to artifact). Transfused additional 1 uPRBC on 10/29 for Hgb 7.8 -> 8.9 -> 9.3 this AM on 10/30
(total of 2 uPRBCs since admission)
Recommendations:
- Okay to continue low-residue diet
- Concern for recurrent diverticular bleeding on 10/29 with (-) IR arteriogram
- Hgb stable after 1 transfusion although still tachycardic this AM but otherwise HD-stable
- IVF to maintain euvolemia
- Continue to trend serial Hgb with CBC, transfuse for goal Hgb > 8.0
- Patient now made DNR and further discussions were made regarding hospice with primary team
- Monitor for recurrent GI bleeding, consider repeat CTA if large volume hematochezia
- No plans for repeat endoscopic interventions at this time, agree with pursuing further GOCs. Will reach out to patient's daughter later this AM
- Rest of care per primary team
Discussed with primary internal medicine team, Dr. Freddy Reyes, this AM.
Subjective
Subjective
Date of Service: October 31, 2023
- Concern for re-bleeding on 10/29, discussions regarding hospice with family and primary team
- S/p IR SMA/HONG arteriograms on 10/29 without any active extravasation to suggest bleeding (limited due to artifact)
- S/p additional 1 uPRBC on 10/29 for Hgb 7.8 -> 8.9 -> 9.3 this AM on 10/30 (total of 2 uPRBCs since admission)
- Otherwise, no acute events overnight. HD-stable although tachycardic with HR 90-110s
Resting comfortably, tired appearing. Daughter not at bedside this AM. Otherwise, patient denies any abdominal pain. No bloody bowel movements overnight or this this AM.
Objective
Data Reviewed
Laboratory Data:
Laboratory Results
10/31/23 05:14
10/30/23 12:07
Laboratory Results
Total Bilirubin 0.5 mg/dl (0.2-1.3) 10/26/23 19:16
AST 21 U/L (14-36) 10/26/23 19:16
ALT 14 U/L (0-35) 10/26/23 19:16
Alkaline Phosphatase 72 U/L (38-126) 10/26/23 19:16
Lipase 142 U/L (23-300) 10/26/23 19:16
Vital Signs and I&O:
Vital Signs
Temp Pulse Resp BP Pulse Ox
98.8 F 113 17 141/73 98
10/31/23 07:47 10/31/23 07:47 10/31/23 07:47 10/31/23 07:47 10/31/23 07:47
I&O
10/30/23 10/31/23 11/01/23
06:59 06:59 06:59
Intake Total 840 / 840
Balance 840 / 840
Physical Exam
Physical Exam
HEENT: Anicteric
Cardiology: Normal Sinus Rhythm
Pulmonary: Clear
GI: Soft, Non Distended and Flat
Extremities: Warm
Neuro: Non Focal
--- NOTE | 2023-10-31 08:48 | W.PN.GENERIC ---
Assessment / Plan
-
83 yo female with LGIB and acute on chronic anemia. She underwent arteriogram in IR yesterday. No source of bleeding identified.
Continue to trend H&H
I spent 40 minutes reviewing the result of our procedure and expected outcomes with the patient and her daughter, reviewing medical records, laboratory studies and all pertinent imaging.
Physician Progress Note
Subjective
This is a 83 yo female who was admittd with multiple episodes of melena and found to have acute on chronic anemia concerning for GI bleed. Previous history of GI bleeding in the past back on 10/2017 where it was possibly attributed to NSAID-induced
ulcers/erosions versus actively bleeding cecal AVM (s/p bipolar cautery at that time). SHe had an EGD and colonoscopy on 10/27, EGD with LA grade A esophagitis, medium sized HH, but otherwise but otherwise normal. Colonoscopy revealed extensive
amount of old blood throughout her entire colon (except cecum/proximal AC), found to have small, oozing cecal AVM (s/p bipolar cautery and one hemoclip) and sigmoid diverticulosis, suspicious for resolved diverticular hemorrhage. Yesterday the
patient had 3 maroon bowel movements and became hypotensive. She underwent IR arteriogram. No source of bleeding identified. She is feeling well today.
Past Medical History
GI Bleed
Social History
Tobacco: Former Smoker
Alcohol: None
Drug: None
Allergies
Allergy/AdvReac Type Severity Reaction Status Date / Time
naproxen [From Naprosyn] Allergy Severe rectal Verified 10/26/23 18:05
bleeding
Milk Containing Products Allergy DAIRY-GAS Verified 10/26/23 18:05
(Dairy)
[Milk Containing Products]
Home Medications
glucosam 750 mg-chondroi 100 mg-hyalur 1.65 mg-CF borate 108 mg tablet (LinQMart) 1 ea PO DAILY, cyanocobalamin (vitamin B-12) 1,000 mcg tablet 1,000 mcg PO, Boswellia hugo extract-turmeric root extract 500 mg capsule 1 cap PO,
Frankincense Oil 1 applic topical DAILY right knee, acetaminophen 500 mg tablet (Tylenol Extra Strength) 1,000 mg PO, cholecalciferol (vitamin D3) 25 mcg (1,000 unit) tablet (Vitamin D3) 25 mcg PO diphenhydramine 25 mg-acetaminophen 500 mg tablet
(Tylenol PM Extra Strength) 1 tab PO DAILY, diphenhydramine 25 mg-acetaminophen 500 mg tablet (Tylenol PM Extra Strength) 2 tab PO HS 10/26/23
Objective
Vital Signs
Temp Pulse Resp BP Pulse Ox
98.8 F 113 17 141/73 98
10/31/23 07:47 10/31/23 07:47 10/31/23 07:47 10/31/23 07:47 10/31/23 07:47
Lab Results
10/31/23 05:14
10/30/23 12:07
83 yo female lying in bed. Color is pale. Skin is warm and dry. Heart is regular. Lungs are CTA. Abdomen is soft and nontender with bowel sounds present. Right groin dressing intact. No hematoma or pulsatile mass. Inguinal and pedal pulses
present. No CCE
--- NOTE | 2023-10-31 09:05 | W.PN.HOSP.TC ---
Today's Communication/Plan
-
allow LRD
Pt changed to DNR
potential dc to Hospice pending input from CM
Assessment / Plan
Assessment / Plan
Acute bloody maroon colored red blood painless GIB suspect LGI origin
DDX: vascular ectasia, Diverticular origin
Associated with ACBLA anemia - Hgb 9.3-->7.8-->8.3-->7.7 -transfuse 1 unit PRBC-->8.0-->7.8, transfused another unit-->8.9-->9.3
(Hgb 11.6 post transfusion on 10/27, probably in error)
WBC 9.5-->15.9 post bleed episode
Hemodynamically stable
- T & S
- Blood consented, scanned at ER
- diet has been advanced, discussed with GI post colo and EGD, okay to advance diet to Low Residue
Fe studies: 20% saturation, Ferritin 173
given 1 dose of ferrlecit, was given 2nd dose
Pt had another extensive bleed with BRBPR afternoon of 10/[address]-A
- IV PPI BID
follow Hgb
- GI consult appreciated, reviewed with Dr. Anne
EGD: - LA Grade A esophagitis with no bleeding.
- Z-line variable, 40 cm from the incisors.
- Medium-sized, 3 cm hiatal hernia.
- Normal stomach on direct and retroflexion views.
Biopsied to r/o H pylori.
- Normal examined duodenum up to the third portion.
- The exam was otherwise without abnormality or
significant findings throughout the examined upper GI
tract to account for patient's melena and maroon
colored stools
Colonoscopy: - Preparation of the colon was inadequate due to stool
and amount of old blood.
- An extensive amount of old, clotted red blood was
found and thickly adherent throughout the entire
examined colon, except the proximal right colon and
cecum with liquid brown stool.
- Suspicious for resolved left-sided diverticular
hemorrhage
- A single bleeding colonic angiodysplastic lesion was
found in the cecum. Unclear if this accurately
represented patient's degree of acute blood loss
anemia and extensive amount of blood throughout the
colon. Treated with bipolar cautery. One hemoclip (MR
conditional) was placed. Clip manager parking: [employer].
- Moderate diverticulosis in the sigmoid colon. There
was evidence of past bleeding from the diverticular
opening with clotted old blood.
- Non-bleeding internal hemorrhoids.
- The examination was otherwise normal on direct and
retroflexion views without any other actively bleeding
lesions or obvious large pedunculated polyps or large
masses. The prep was inadequate for polyp detection.
CTA performed following afternoon active bleed: Grossly unremarkable SMA and HONG arteriograms with no findings suggestive of active bleeding. No intervention was performed. Note image quality was suboptimal secondary to patient motion and excessive
bowel gas.
Chr condition
GERD
'Stage 1 gluteal cleft pressure injury, POA.'
Aortic Sclerosis/MR
Arthritis
Remote HX smoking
Systolic HTN, mild
added low dose Norvasc, BP better: 113-157/73-92
Confirmed with dgt, Nancy, pt not on PPI for ~1yr and dgt has been updated at bedside 10/29
Long discussion with dgt at bedside with [facility] and plans moving forward. Pt really wants nothing further done and would like to be discharged. Nancy would like to follow patient's previously and currently stated requests. Was transfused 1 more
unit 10/29. Today pt is lethargic. Had 2nd visit with dgt late yesterday afternoon and decision made to plan dc, potentially on Friday, on either Hospice or [facility] to Home. Reviewed with CM who will be by to talk to dgt. Dr. Anne was
updated.
Reviewed GOC again with dgt
time 55 minutes
DVT Px: SCD
Code: Full
IP TLM
Anticipated Discharge: 24 - 48 hours
Subjective/Interval History
-
Date of Service: October 31, 2023
Sleepy today
Objective Data
-
Labs:
Laboratory Results
10/31/23
05:14
WBC 15.9 H
Hgb 9.3 L
Hct 25.2 L
Plt Count 90 L
Vital Signs:
Vital Signs
Temp Pulse Resp BP Pulse Ox
98.8 F 113 17 141/73 98
10/31/23 07:47 10/31/23 07:47 10/31/23 07:47 10/31/23 07:47 10/31/23 07:47
I&O
10/30/23 10/31/23 11/01/23
06:59 06:59 06:59
Intake Total 840 / 840
Balance 840 / 840
Review of Systems
-
History Source: Patient and Family (Nancy doll, in room)
Constitutional: Denies Fever
EENT: Reports No Symptoms Reported
Respiratory: Reports No Symptoms; Denies Trouble Breathing
Cardiac: Reports No Symptoms; Denies Chest Pain
Abdomen/GI: Reports Bloody Stools (yesterday, 10/29 passed grossly bloody stools and underwent arteriogram, neg); Denies Abdominal Pain
Musculoskeletal: Reports No Symptoms
Physical Exam
-
General: Well Developed, Well Nourished and No Apparent Distress
HEENT: Normocephalic, Atraumatic and Moist Mucous Membranes
Respiratory: Clear to Auscultation; Negative Wheezes, Rales or Rhonchi
Cardiac: Regular Rhythm, S1/S2 and Murmur (3/6 MR m, 2/6 m)
GI: Soft, Nontender and Nondistended
Musculoskeletal: No Clubbing, No Cyanosis and No Edema
Neuro: Negative Awake (sleepy), Alert or Oriented
[2023-10-31] MEDS: NORVASC 2.5 MG PO (09:47)
[2023-10-31] MEDS: PROTONIX 40 MG PO (09:48)
[2023-10-31] MEDS: TYLENOL 1000 MG PO ×2 (09:50→20:55)
--- NOTE | 2023-10-31 12:00 | CM ---
met with patient and daughter miguelangel at bedside.hgb 9.3 after 2 units blood,patient changed to dnr.await hospice cs.may dc to home hospice with vn.
--- NOTE | 2023-10-31 12:02 | PN.CDI ---
CDI
- -
CDI:
Physician Documentation Request
Admit Date: 10/26/23 20:26
Dear Doctor Amy,
Patient admitted with GI bleed.
Na level documented below:
Laboratory Tests
10/26/23 10/27/23 10/30/23
19:16 05:18 12:07
Sodium 135 135 126 L
Based on the above, could you clarify in the progress notes, the appropriate diagnosis, if significant, that supports the above abnormalities and additional evaluation, monitoring and/or treatment rendered:
Hyponatremia
Insignificant abnormal lab finding
Other
Use of terms such as suspected, likely, concern for, or probable (associated with a specific diagnosis that is being evaluated, monitored, or treated as if it exists) are acceptable and can be coded in the inpatient setting, when documented at the
time of discharge.
Thank you,
Viviana RUSS,RN,CCDS
CDI Specialist
Available via [employer] text
Please use your independent medical judgment in providing your response.
--- NOTE | 2023-10-31 12:10 | W.PN.UPDATE ---
Update Note
Progress Note Update
Discussed with patient's daughter, Nancy, at bedside this afternoon. No further signs of recurrent GI bleeding over the past 24 hrs without any recent bloody stools this AM or overnight. Again discussed previous EGD and Colonoscopy findings along
with biopsy results (-) for H pylori. Appears her GI bleed has resolved, likely resolved diverticular bleed. At risk for recurrent bleeding in future, however both patient and daughter decline any further interventions (ie surgery, further
aggressive interventions, etc). I think is entirely reasonable given her advanced age, frailty and deconditioning since her hospitalization. Plans on going hospice this weekend and wants her mother to be home. Addressed all questions and concerns.
Discussed with primary internal medicine team, Dr. Reyes.
GI team will sign-off. Please re-engage if any other questions or concerns.
--- NOTE | 2023-10-31 13:20 | HOSPNOTE ---
Spoke with daughter about hospice and the philosophy. The daughter is in agreement with hospice and would like the patient to be discharged on Wednesday 11/01 to home. Equipment will be ordered and delivered and we are asking for the patient to be
transported to home in the am. OOH DNR will be needed on chart. Case management and Attending aware.
[2023-10-31] MEDS: FERRLECIT 110 MG IV (15:30)
--- NOTE | 2023-10-31 16:00 | PTCARENOTE ---
Pt difficult to arouse. BP 84/[address] aware. IVFs ordered. Daughter updated.
[2023-10-31] MEDS: NSS 1000 IV (18:39)
[2023-11-01] VITALS (8 sets, daily range): BP systolic 91–111; BP diastolic 56–69
[2023-11-01] MEDS: NSS 1000 IV (04:30)
[2023-11-01] MEDS: TYLENOL 1000 MG PO ×2 (04:36→19:02)
[2023-11-01 07:40] LABS: % Basophils 0.1 % (0-2); % Eosinophils 0.6 % (0-6); % Immature Granulocytes 0.7 % (0-0.5); % Lymphocytes 12.2 % (20.5-51.1); % Monocytes 11.6 % (1.7-9.3); % Neutrophils 74.8 % (42.2-75.2); Absolute Eosinophils 0.1 10^3/uL (0-0.7); Absolute Immature Granulocytes 0.1 10^3/uL (0-0.05); Absolute Lymphocytes 1.6 10^3/uL (1.2-3.4); Absolute Monocytes 1.5 10^3/uL (0.1-0.6); Absolute Neutrophils 9.9 10^3/uL (1.4-6.5); Hematocrit 18.3 % (37.0-47.0); Hemoglobin 6.7 g/dL (12.0-16.0); Mean Corp Hgb Conc. 36.6 g/dL (33.0-37.0); Mean Corpuscular Hgb 35.1 pg (27.0-31.0); Mean Corpuscular Volume 95.8 fL (81.0-99.0); Mean Platelet Volume 13.7 fL (7.4-10.4); Nucleated Red Blood Cells % 0 %; Platelet Count 86 10^3/uL (130-400); Red Blood Cell Count 1.91 10^6/uL (4.20-5.40); Red Cell Dist. Width 16.9 % (11.5-14.5); White Blood Cell Count 13.2 10^3/uL (4.8-10.8)
[2023-11-01] MEDS: PROTONIX 40 MG PO (09:26)
[2023-11-01] MEDS: NORVASC PO ×2 (09:26→10:02)
--- NOTE | 2023-11-01 11:33 | CM ---
Addendum entered by Dinah Saldaña 11/01/23 11:37:
patient on comfort measures.she will dc home on home hospice with [facility] tomorrow.cm to arrange transport at 11:00 tomorrow.
Original Note:
patient stable for dc home with no needs.family to transport home.
--- NOTE | 2023-11-01 11:40 | W.PN.HOSP.TC ---
Addendum entered and electronically signed by Freddy Reyes MD 11/01/23 11:49:
Noted episode of hyponatremia, doubt clinical significance
Original Note:
Today's Communication/Plan
-
Unit blood today
changed status to DNR
potential dc tomorrow on Hospice
Assessment / Plan
Assessment / Plan
Acute bloody maroon colored red blood painless GIB suspect LGI origin, none past 20 hrs
DDX: vascular ectasia, Diverticular origin
Associated with ACBLA anemia - Hgb 9.3-->7.8-->8.3-->7.7 -transfuse 1 unit PRBC-->8.0-->7.8, transfused another unit-->8.9-->9.3-GI bleed-->6.7, will transfuse now
(Hgb 11.6 post transfusion on 10/27, probably in error)
WBC 9.5-->15.9 post bleed episode-->13.2
Hemodynamically stable
- T & S
- Blood consented, scanned at ER
- diet has been advanced, discussed with GI post colo and EGD, okay to advance diet to Low Residue
Fe studies: 20% saturation, Ferritin 173
given 1 dose of ferrlecit, was given 2nd dose
Pt had another extensive bleed with BRBPR afternoon of 10/[address]-A
- IV PPI BID
follow Hgb
- GI consult appreciated, reviewed with Dr. Anne
EGD: - LA Grade A esophagitis with no bleeding.
- Z-line variable, 40 cm from the incisors.
- Medium-sized, 3 cm hiatal hernia.
- Normal stomach on direct and retroflexion views.
Biopsied to r/o H pylori.
- Normal examined duodenum up to the third portion.
- The exam was otherwise without abnormality or
significant findings throughout the examined upper GI
tract to account for patient's melena and maroon
colored stools
Colonoscopy: - Preparation of the colon was inadequate due to stool
and amount of old blood.
- An extensive amount of old, clotted red blood was
found and thickly adherent throughout the entire
examined colon, except the proximal right colon and
cecum with liquid brown stool.
- Suspicious for resolved left-sided diverticular
hemorrhage
- A single bleeding colonic angiodysplastic lesion was
found in the cecum. Unclear if this accurately
represented patient's degree of acute blood loss
anemia and extensive amount of blood throughout the
colon. Treated with bipolar cautery. One hemoclip (MR
conditional) was placed. 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.
- Moderate diverticulosis in the sigmoid colon. There
was evidence of past bleeding from the diverticular
opening with clotted old blood.
- Non-bleeding internal hemorrhoids.
- The examination was otherwise normal on direct and
retroflexion views without any other actively bleeding
lesions or obvious large pedunculated polyps or large
masses. The prep was inadequate for polyp detection.
CTA performed following afternoon active bleed: Grossly unremarkable SMA and HONG arteriograms with no findings suggestive of active bleeding. No intervention was performed. Note image quality was suboptimal secondary to patient motion and excessive
bowel gas.
Chr condition
GERD
'Stage 1 gluteal cleft pressure injury, POA.'
Aortic Sclerosis/MR
Arthritis
Remote HX smoking
Systolic HTN, mild
added low dose Norvasc, BP better: 113-157/73-92
Confirmed with donaldot, Nancy, pt not on PPI for ~1yr and dgt has been updated at bedside 10/29
Met with dgt again today, 10/31. Decision made to dc tomorrow (11/01) on Hospice. Will give unit blood now
BP has been variable with low readings at time. As pt going home on Hospice, will cancel Norvasc
time 55 minutes
DVT Px: SCD
Code:DNR
IP TLM
Anticipated Discharge: Within 24 hours
Subjective/Interval History
-
Date of Service: November 01, 2023
Looks better today, sitting up in bed, eating. No further GI bleed since yesterday
Objective Data
-
Labs:
Laboratory Results
11/01/23
06:53
WBC 13.2 H
Hgb 6.7 L* D
Hct 18.3 L*
Plt Count 86 L
Vital Signs:
Vital Signs
Temp Pulse Resp BP Pulse Ox
98.1 F 87 16 98/58 98
11/01/23 10:10 11/01/23 10:10 11/01/23 10:10 11/01/23 10:10 11/01/23 10:10
I&O
10/31/23 11/01/23 11/02/23
06:59 06:59 06:59
Intake Total 1140 / 1140 0 / 0
Balance 1140 / 1140 0 / 0
Review of Systems
-
History Source: Family (dgt in room)
Constitutional: Denies Fever
EENT: Reports No Symptoms Reported
Respiratory: Reports No Symptoms
Cardiac: Reports No Symptoms
Abdomen/GI: Reports Bloody Stools (last episode was 10/29, none today); Denies Abdominal Pain
Physical Exam
-
General: Well Developed, Well Nourished, No Apparent Distress and Appears Chronically Ill
HEENT: Normocephalic, Atraumatic and Moist Mucous Membranes
Respiratory: Clear to Auscultation; Negative Wheezes, Rales or Rhonchi
Cardiac: Regular Rhythm, S1/S2 and Murmur (04/15 MR m, 2/ m)
GI: Soft, Nontender and Nondistended
Musculoskeletal: No Clubbing, No Cyanosis and No Edema
Skin: Warm and Dry
Neuro: Awake, Alert and Oriented
[2023-11-02] MEDS: TYLENOL 1000 MG PO ×2 (01:08→08:06)
[2023-11-02 07:00] VITALS: BP 106/66
[2023-11-02] MEDS: PROTONIX 40 MG PO (08:06)
--- NOTE | 2023-11-02 09:51 | W.PN.HOSP.TC ---
Today's Communication/Plan
-
dc to home Hospice
Assessment / Plan
Assessment / Plan
Acute bloody maroon colored red blood painless GIB suspect LGI origin, had recurrent bleeding this morning
DDX: vascular ectasia, Diverticular origin
Associated with ACBLA anemia - Hgb 9.3-->7.8-->8.3-->7.7 -transfuse 1 unit PRBC-->8.0-->7.8, transfused another unit-->8.9-->9.3-GI bleed-->6.7, 2nd unit transfused 10/31
(Hgb 11.6 post transfusion on 10/27, probably in error)
WBC 9.5-->15.9 post bleed episode-->13.2
Hemodynamically stable
- T & S
- Blood consented, scanned at ER
- diet has been advanced, discussed with GI post colo and EGD, okay to advance diet to Low Residue
Fe studies: 20% saturation, Ferritin 173
given ferrlecit
Pt had another extensive bleed with BRBPR afternoon of 10/[address]-A and has continued to bleed intermittently
- IV PPI BID
follow Hgb
- GI consult appreciated, reviewed with Dr. Anne
EGD: - LA Grade A esophagitis with no bleeding.
- Z-line variable, 40 cm from the incisors.
- Medium-sized, 3 cm hiatal hernia.
- Normal stomach on direct and retroflexion views.
Biopsied to r/o H pylori.
- Normal examined duodenum up to the third portion.
- The exam was otherwise without abnormality or
significant findings throughout the examined upper GI
tract to account for patient's melena and maroon
colored stools
Colonoscopy: - Preparation of the colon was inadequate due to stool
and amount of old blood.
- An extensive amount of old, clotted red blood was
found and thickly adherent throughout the entire
examined colon, except the proximal right colon and
cecum with liquid brown stool.
- Suspicious for resolved left-sided diverticular
hemorrhage
- A single bleeding colonic angiodysplastic lesion was
found in the cecum. Unclear if this accurately
represented patient's degree of acute blood loss
anemia and extensive amount of blood throughout the
colon. Treated with bipolar cautery. One hemoclip (MR
conditional) was placed. 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.
- Moderate diverticulosis in the sigmoid colon. There
was evidence of past bleeding from the diverticular
opening with clotted old blood.
- Non-bleeding internal hemorrhoids.
- The examination was otherwise normal on direct and
retroflexion views without any other actively bleeding
lesions or obvious large pedunculated polyps or large
masses. The prep was inadequate for polyp detection.
CTA performed following afternoon active bleed: Grossly unremarkable SMA and HONG arteriograms with no findings suggestive of active bleeding. No intervention was performed. Note image quality was suboptimal secondary to patient motion and excessive
bowel gas.
Chr condition
GERD
'Stage 1 gluteal cleft pressure injury, POA.'
Aortic Sclerosis/MR
Arthritis
Remote HX smoking
Systolic HTN, mild
stopped Norvasc to avoid low BP
Confirmed with donaldot, Nancy, pt not on PPI for ~1yr and dgt has been updated at bedside 10/29
Met with dgt again today, 10/31. Decision made to dc tomorrow (11/01) on Hospice. Will give unit blood now
BP has been variable with low readings at time. As pt going home on Hospice, will cancel Norvasc
DVT Px: SCD
Code:DNR
IP TLM
dc to home on Hospice
see dictated note
More than 30 minutes spent in discharge including
Final examination of the patient
Summarizing hospital stay
Instructions for continuing care to all relevant caregivers
Preparation of discharge records, prescriptions, and referral forms
Total time spent (in minutes): 45
Anticipated Discharge: Today
Subjective/Interval History
-
Date of Service: November 02, 2023
More alert, ate well
Objective Data
-
Vital Signs:
Vital Signs
Temp Pulse Resp BP Pulse Ox
98.6 F 90 18 106/66 97
11/02/23 07:00 11/02/23 07:00 11/02/23 07:00 11/02/23 07:00 11/02/23 07:00
I&O
11/01/23 11/02/23 11/03/23
06:59 06:59 06:59
Intake Total 1140 / 1140 790 / 790 240 / 240
Output Total 1350 / 1350
Balance 1140 / 1140 -560 / -560 240 / 240
Review of Systems
-
History Source: Family (dgt, son and s-i-l in room)
Constitutional: Denies Fever
EENT: Reports No Symptoms Reported
Respiratory: Reports No Symptoms
Cardiac: Reports No Symptoms
Abdomen/GI: Reports Bloody Stools (last episode was 10/29, none today); Denies Abdominal Pain
Physical Exam
-
General: Well Developed, Well Nourished, No Apparent Distress and Appears Chronically Ill
HEENT: Normocephalic, Atraumatic and Moist Mucous Membranes
Respiratory: Clear to Auscultation; Negative Wheezes, Rales or Rhonchi
Cardiac: Regular Rhythm, S1/S2 and Murmur (04/15 MR m, 03/18 m)
GI: Soft, Nontender and Nondistended
Musculoskeletal: No Clubbing, No Cyanosis and No Edema
Skin: Warm and Dry
Neuro: Awake, Alert and Oriented
[2023-11-02 11:34] VITALS: BP 115/68
--- NOTE | 2023-11-02 11:41 | PTCARENOTE ---
Confirmed with Dr. 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 RN relayed this information to patient son.
--- NOTE | 2023-11-02 12:29 | W.DS.TRANS ---
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
-
Discharge Instructions:
Discharge Diagnosis/Procedures Recurrent GI Bleeding
Diet Regular,Low Fiber
Activity With assistance
Driving Restrictions No driving
Bathing Restrictions None
Other Services VN,Hospice
Instructions:
Stand-Alone Forms:
Changes to Home Medications: Yes
Discharge Medications:
DC Medications w/original date entered in [employer]
glucosam 750 mg-chondroi 100 mg-hyalur 1.65 mg-CF borate 108 mg tablet (Move Free Joint Tengrade) 1 ea PO DAILY osteoarthritis 10/29/17
cyanocobalamin (vitamin B-12) 1,000 mcg tablet 1,000 mcg PO DAILY ##30 11/01/17
Frankincense Oil 1 applic topical DAILY right cadence 10/26/23
acetaminophen 500 mg tablet (Tylenol Extra Strength) 1,000 mg PO Q4H osteoarthritis 10/26/23
cholecalciferol (vitamin D3) 25 mcg (1,000 unit) tablet (Vitamin D3) 25 mcg PO DAILY Supplement 10/26/23
diphenhydramine 25 mg-acetaminophen 500 mg tablet (Tylenol PM Extra Strength) 2 tab PO HS sleep/pain 10/26/23
pantoprazole 40 mg tablet,delayed release 40 mg PO DAILY #30 tabs 11/02/23
Home Medication Changes
Protonix added
Pending Results: No
== END 2023-11-02 11:46 | disposition hospice, home (50) | DRG 378 ==
LOC: 3 WEST ACU 20:26
PROVIDERS: Internal Medicine; Nurse Practitioner; Nurse Practitioner Family; ADMITTING PHYSICIAN Internal Medicine; ATTENDING PHYSICIAN Internal Medicine; EMERGENCY PHYSICIAN Emergency Medicine; FAMILY PHYSICIAN Family Medicine; OTHER PHYSICIAN Student in an Organized Health Care Education/Training Program
PROC: 0W3P8ZZ Control Bleeding in Gastrointestinal Tract, Via Natural or Artificial Opening Endoscopic (ICD-10-PCS; 2023-10-28)
PROC: 30233N1 Transfusion of Nonautologous Red Blood Cells into Peripheral Vein, Percutaneous Approach (ICD-10-PCS; 2023-10-28)
PROC: 0DB68ZX Excision of Stomach, Via Natural or Artificial Opening Endoscopic, Diagnostic (ICD-10-PCS; 2023-10-28)
DX: K55.21 Angiodysplasia of colon with hemorrhage (principal); D62 Acute posthemorrhagic anemia; Q39.9 Congenital malformation of esophagus, unspecified; Z66 Do not resuscitate; K57.31 Diverticulosis of large intestine without perforation or abscess with bleeding; K21.00 Gastro-esophageal reflux disease with esophagitis, without bleeding; K64.0 First degree hemorrhoids; K44.9 Diaphragmatic hernia without obstruction or gangrene; K80.20 Calculus of gallbladder without cholecystitis without obstruction; D50.9 Iron deficiency anemia, unspecified; I70.0 Atherosclerosis of aorta; L89.151 Pressure ulcer of sacral region, stage 1; I08.0 Rheumatic disorders of both mitral and aortic valves; F03.90 Unspecified dementia, unspecified severity, without behavioral disturbance, psychotic disturbance, mood disturbance, and anxiety; Z96.642 Presence of left artificial hip joint; Z87.891 Personal history of nicotine dependence; Z88.6 Allergy status to analgesic agent; Z87.11 Personal history of peptic ulcer disease
CPT/HCPCS: 88305; 36246; 74174; 75726; 76937; 80048; 80053; 82607; 82728; 82746; 83540; 83550; 83690; 85014; 85018; 85025; 85027; 86850; 86900; 86901; 86920; 88342; 96361; 96374; 97163; 97167; 99285; C1769; J2916; P9016; Q9967